=== PATIENT | female | born 1970 | race Caucasian/White ===

== ENCOUNTER 2020-11-24 15:44 | Emergency (ER) | payer BC ==
[2020-11-24] MEDS ORDERED: MOBIC15 MG PO (19:45)
[2020-11-24] MEDS ORDERED: CYCLOBENZAPRINE5 MG PO (19:45)
== END 2020-11-24 19:59 | disposition home or self-care (01) ==
LOC: ER1 15:44
DX: S16.1XXA Strain of muscle, fascia and tendon at neck level, initial encounter (principal); S46.911A Strain of unspecified muscle, fascia and tendon at shoulder and upper arm level, right arm, initial encounter; S60.221A Contusion of right hand, initial encounter; F17.210 Nicotine dependence, cigarettes, uncomplicated; V49.50XA Passenger injured in collision with unspecified motor vehicles in traffic accident, initial encounter
CPT/HCPCS: 71045; 72125; 73030; 73130; 96372; 99284; J1885

== ENCOUNTER 2021-01-06 19:29 | Emergency (ER) | payer BC ==
[~2021-01-06 19:29] MED LIST: CYCLOBENZAPRINE5 MG PO; MOBIC15 MG PO
[2021-01-06 20:16] LABS: HEMOGLOBIN 14.1 gm/dl (12.3-15.3); RED BLOOD COUNT 4.31 M/UL (4.00-5.10); WHITE BLOOD COUNT 5.6 K/UL (4.5-11.0)
[2021-01-06 21:28] LABS: BUN/CREATININE RATIO 14 (0-10)
[2021-01-06] MEDS ORDERED: CYCLOBENZAPRINE10 MG PO (22:05)
== END 2021-01-06 23:41 | disposition home or self-care (01) ==
LOC: ER1 19:29
PROVIDERS: Physician Assistant
DX: S13.4XXA Sprain of ligaments of cervical spine, initial encounter (principal); S33.5XXA Sprain of ligaments of lumbar spine, initial encounter; S40.011A Contusion of right shoulder, initial encounter; S70.01XA Contusion of right hip, initial encounter; S30.1XXA Contusion of abdominal wall, initial encounter; V49.50XA Passenger injured in collision with unspecified motor vehicles in traffic accident, initial encounter; Z90.710 Acquired absence of both cervix and uterus; Z88.6 Allergy status to analgesic agent; F17.210 Nicotine dependence, cigarettes, uncomplicated; Y92.410 Unspecified street and highway as the place of occurrence of the external cause
CPT/HCPCS: 71045; 72125; 72131; 73030; 73502; 80053; 81001; 85025; 99284; Q9967

== ENCOUNTER 2021-07-22 19:00 | Emergency (ER) | payer OTHER ==
[~2021-07-22 19:00] MED LIST changes: +CYCLOBENZAPRINE10 MG PO
[2021-07-22 21:54] LABS: HEMOGLOBIN 15.9 gm/dl (12.3-15.3); RED BLOOD COUNT 4.88 M/UL (4.00-5.10); WHITE BLOOD COUNT 8.3 K/UL (4.5-11.0)
[2021-07-22 22:25] LABS: BUN/CREATININE RATIO 16 (0-10)
[2021-07-23] MEDS ORDERED: ZOFRAN ODT 4 MG4 MG SL (02:05)
[2021-07-23] MEDS ORDERED: HYDROCODON-ACE1 EAC4 PO (02:07)
== END 2021-07-23 02:34 | disposition home or self-care (01) ==
LOC: ER1 19:00
PROVIDERS: Physician Assistant
DX: K76.0 Fatty (change of) liver, not elsewhere classified (principal); R82.71 Bacteriuria; E11.9 Type 2 diabetes mellitus without complications; F17.210 Nicotine dependence, cigarettes, uncomplicated; Z79.4 Long term (current) use of insulin
CPT/HCPCS: 80053; 81001; 82150; 82550; 82553; 83690; 84484; 85025; 87086; 99284; Q9967; U0002

== ENCOUNTER → 2021-08-19 | Outpatient (CLI) | payer OTHER ==
[~2021-08-19] MED LIST changes: +HYDROCODON-ACE1 EAC4 PO; +ZOFRAN ODT 4 MG4 MG SL
== END ==
LOC: US 09:16
DX: R10.11 Right upper quadrant pain (principal); K76.0 Fatty (change of) liver, not elsewhere classified
CPT/HCPCS: 76705